=== PATIENT | male | born 2000 | race Caucasian/White ===

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

== ENCOUNTER 2018-11-25 12:34 | Emergency (ER) | payer BC, OTHER ==
[2018-11-25 12:43] VITALS: BP 123/93
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
== END 2018-11-25 14:39 | disposition home or self-care (01) ==
LOC: JD.ED 12:34
DX: S92.322A Displaced fracture of second metatarsal bone, left foot, initial encounter for closed fracture (principal); S90.32XA Contusion of left foot, initial encounter; Z88.0 Allergy status to penicillin; Z87.891 Personal history of nicotine dependence; W22.8XXA Striking against or struck by other objects, initial encounter
CPT/HCPCS: 73630-26-LT; 73630-LT; 99282; 99283-25